=== PATIENT | male | born 1980 | race Hispanic/Latino ===

== ENCOUNTER 2018-12-27 11:56 | Emergency (ER) | payer OTHER, SELFPAY ==
[2018-12-27 12:06] VITALS: BP 118/68; PULSE 64; RESP 12; TEMP 37; O2SAT 98; BMI 29.8
--- NOTE | 2018-12-27 12:24 | ED.EYEPROB ---
HPI - Eye Problem <MINH Gomez - Last Filed: 12/27/18 14:08> General Chief complaint: Eye Problems Stated complaint: Thinks he may have pink eye Time Seen by Provider: 12/27/18 12:13 Source: patient Mode of arrival: ambulatory Limitations: no limitations History of Present Illness HPI Narrative: R eye started turning red, and having dc, itches, lam, x3-4 days ago, denies any injury/trauma/fb, denies contacts MD chief complaint: eye redness Onset (ago): day(s) (x3-4) Onset description: unknown Duration: constant Location: right eye Eye Symptoms: burning, redness, itching and discharge Mechanism: none If Pain, Quality: burning Associated symptoms: none Treatments Prior to Arrival: none Related Data Previous Rx's Medication Instructions Recorded polymyxin B sulf-trimethoprim 1 drop EYE-RIGHT Q3H 3 Days #10 ml 12/27/18 Allergies Allergy/AdvReac Type Severity Reaction Status Date / Time No Known Drug Allergies Allergy Verified 12/27/18 12:08 Review of Systems <MINH Gomez - Last Filed: 12/27/18 14:08> Review of Systems ROS Unobtainable: All systems reviewed & are unremarkable except as noted in HPI and below Constitutional Reports as per HPI, Reports system reviewed and no additional complaints, except as docu and Denies headache(s) Eyes Reports as per HPI, Denies blurry vision, Denies change in vision, Denies loss of vision, Denies requires corrective lenses and Denies photophobia ENT Ears, Nose, Mouth, and Throat: Denies change in voice, Denies otalgia, Denies facial pain, Denies headache(s), Denies nasal congestion, Denies nasal discharge, Denies neck pain, Denies post nasal drip and Denies sore throat Cardiovascular Denies chest pain, Denies irregular heart rhythm, Denies lightheadedness, Denies palpitations, Denies dyspnea, Denies dyspnea on exertion and Denies orthopnea Respiratory Denies cough, Denies dyspnea, Denies dyspnea on exertion and Denies wheezing Gastrointestinal Gastrointestinal: Denies abdominal pain, Denies change in bowel habits, Denies diarrhea, Denies nausea and Denies vomiting Genitourinary Denies hematuria, Denies flank pain, Denies urinary incontinence and Denies urinary urgency Musculoskeletal Denies neck pain Integumentary/Breasts Denies pruritus, Denies erythema, Denies rash and Denies wounds Neurologic Denies confusion, Denies headache(s) and Denies loss of vision Psychiatric Denies anxiety, Denies confusion, Denies depression, Denies homicidal ideation and Denies suicidal ideation Endocrine Denies palpitations Hematologic/Lymphatic Denies easy bruising Allergic/Immunologic Denies wheezing PFSH <MINH Gomez - Last Filed: 12/27/18 14:08> Social History Smoking Status: Never smoker Social History Smoking Status: Never smoker Exam <MINH Gomez - Last Filed: 12/27/18 14:08> Initial Vital Signs Initial Vital Signs: Vital Signs Temperature 98.6 F 12/27/18 12:06 Pulse Rate 64 12/27/18 12:06 Respiratory Rate 12 12/27/18 12:06 Blood Pressure 118/68 12/27/18 12:06 Pulse Oximetry 98 12/27/18 12:06 Const General: cooperative, healthy appearing, comfortable, well developed and well groomed Nutritional Appearance: average body habitus Orientation: alert, awake and oriented x3 HENMT Head: normal to inspection and atraumatic Ears: hearing grossly normal bilaterally and external ears normal Nose: external nose normal Face and sinus: normal facial exam Mouth: oral mucosae normal, lip normal and tongue normal Eyes General: appearance normal, both eyes and all related structures Visual Velásuqez: normal visual velásquez by confrontation Alignment and Position: alignment normal Periorbital: periorbital findings normal Eyelids: eyelids normal Conjunctivae: conjunctivae normal Sclera: sclerae normal Cornea: corneas normal Pupils: PERRL EOM: EOM intact bilaterally Direct ophthalmoscopy: normal light reflex Neck Neck: normal visual inspection and full ROM Resp Effort & Inspection: normal respiratory effort and able to speak in complete sentences Back/Spine/Pelvis Cervical Spine: cervical ROM normal Thoracic/Lumbar Spine: thoraco-lumbar ROM normal Skin General: elasticity normal and turgor normal Neuro General: alert, awake, oriented x3, gait normal and moves all extremities Cognition: normal cognition Speech: speech normal Gait: normal gait Motor: muscle tone normal throughout Sensory Exam: no sensory deficits noted Extrem General: normal to inspection and full ROM Right upper extremity: full ROM Left upper extremity: full ROM Right lower extremity: full ROM Psych Appearance: grossly normal and well kempt Speech and Movement: speech and movement normal Mood: congruent mood Affect: normal affect Attitude: cooperative Thought Process: normal Thought Content: normal Judgment: judgment good <Jacinda Mcallister DO - Last Filed: 12/27/18 18:52> Initial Vital Signs Initial Vital Signs: Vital Signs Temperature 98.6 F 12/27/18 12:06 Pulse Rate 64 12/27/18 12:06 Respiratory Rate 12 12/27/18 12:06 Blood Pressure 118/68 12/27/18 12:06 Pulse Oximetry 98 12/27/18 12:06 Procedures <MINH Gomez - Last Filed: 12/27/18 14:08> [facility] [place] Procedure Name of Procedure: wood lamp exam properacaine applied to R eye with fluorscein strip dye, examined under wood lamp (black light), no corneal abrasion, ulcer or fb seen, eye flushed with ns after Side (if applicable): right Patient tolerated procedure: Well and No complications Course <MINH Gomez - Last Filed: 12/27/18 14:08> Vital Signs - 8 hr 12/27/18 12:06 Temperature 98.6 F Pulse Rate 64 Respiratory Rate 12 Blood Pressure 118/68 Pulse Oximetry 98 <Jacinda Mcallister DO - Last Filed: 12/27/18 18:52> Vital Signs - 8 hr 12/27/18 12:06 Temperature 98.6 F Pulse Rate 64 Respiratory Rate 12 Blood Pressure 118/68 Pulse Oximetry 98 MDM - Eye Problem <MINH Gomez - Last Filed: 12/27/18 14:08> Differential Diagnosis Likely corneal abrasion, conjunctivitis, acute iritis, corneal ulcer and other (corneal fb) Discharge Plan Departure Patient Disposition: Home Clinical Impression: Bacterial conjunctivitis Discharge Date/Time: 12/27/18 12:47 Interventions: ED Discharge Assessment Last Done: 12/27/18 12:47 Instructions: Conjunctivitis, DI for Conjunctivitis Prescriptions: New polymyxin B sulf-trimethoprim 10,000 unit- 1 mg/mL drops 1 drop EYE-RIGHT Q3H 3 Days Qty: 10 RF: 0 Referrals: Ellyn Hedrick MD [Non-Staff] - Ivette Shaikh MD [Non-Staff] - Michael Oliver MD [Non-Staff] - (follow up in 3 days as needed) Stand Alone Forms: Work Release Note <Jacinda Mcallister DO - Last Filed: 12/27/18 18:52> Cosign ED Attending Cosignature Attestation: I was immediately available in the department for consultation. This documentation has been reviewed and I agree with assessment and plan. Supervised by Jacinda Mcallister DO
== END 2018-12-27 12:47 | disposition home or self-care (01) ==
PROVIDERS: Emergency Provider Nurse Practitioner
DX: H10.9 Unspecified conjunctivitis (principal)
CPT/HCPCS: 99282; 99283